=== PATIENT | female | born 1970 | race Caucasian/White ===

== ENCOUNTER 2021-11-27 11:41 | Inpatient (IN) | payer MEDICAID ==
[~2021-11-27] VITALS: Ht 144.8 cm; Wt 97.5 kg
[2021-11-27] MEDS ORDERED: LIDOCAINE HCL/EPINEPHRINE 1%-EPI 1:100,000 20 ML VIAL INFIL ONE (12:15)
[2021-11-27 12:24] LABS: EOSINOPHILS % 3.3 % (0.0-5.0); HEMATOCRIT. 44.3 % (36.0-48.0); HEMOGLOBIN. 14.8 g/dL (12.0-16.0); LYMPHOCYTES % 41.2 % (20.0-50.0); MEAN CORPUSCULAR HEMOGLOBIN 29.2 pg (28.0-32.0); MEAN CORPUSCULAR VOLUME 87.3 fL (81.0-99.0); MEAN PLATELET VOLUME 8.4 fl (7.4-10.4); MONOCYTES % 5.3 % (2.0-8.0); NEUTROPHILS % 49.2 % (40.0-76.0); PLATELET 296 x1000/uL (130-400); RED BLOOD CELL COUNT 5.07 mill/uL (4.2-5.4); RED CELL DISTRIBUTION WIDTH 13.9 % (11.6-14.6)
[2021-11-27 12:41] LABS: CHLORIDE 102 mEq/L (98-107)
[2021-11-27] MEDS ORDERED: DEXTROSE 50% WATER 50ML SYRINGE IV PRN (15:45)
[2021-11-27] MEDS ORDERED: NITROGLYCERIN 0.4MG TABLET SL SL PRN (15:45)
[2021-11-27] MEDS ORDERED: DOCUSATE SODIUM 100MG CAPSULE PO PRN (15:45)
[2021-11-27] MEDS ORDERED: ZOLPIDEM TARTRATE 5MG TABLET PO PRN (15:45)
[2021-11-27] MEDS ORDERED: IPRATROPIUM/ALBUTEROL 0.5-3(2.5)MG/3ML NEB NEB PRN (15:45)
[2021-11-27] MEDS ORDERED: MAGNESIUM/ALUMINUM HYDROXIDE/SIMETHICONE 30ML UDC PO PRN (15:45)
[2021-11-27] MEDS ORDERED: ONDANSETRON HCL 4MG/2ML INJ IV PRN (15:45)
[2021-11-27] MEDS ORDERED: CLONIDINE 0.1MG TABLET PO PRN (15:45)
[2021-11-27] MEDS ORDERED: ACETAMINOPHEN 325MG TABLET PO PRN (15:45)
[2021-11-27] MEDS ORDERED: GUAIFENESIN 200MG/10ML SUGAR FREE UDC PO PRN (15:45)
[2021-11-27 17:05] VITALS: BP 112/65
[2021-11-27 17:09] VITALS: BP 111/65
[2021-11-27 17:24] LABS: ETHANOL BLOOD < 10 mg/dL; HDL CHOLESTEROL 30 mg/dL (40-59); LDL CHOLESTEROL 108 mg/dL (5-100); TOTAL IRON BINDING CAPACITY 338 ug/dL (250-450)
[2021-11-27] MEDS: BLOOD SUGAR DIAGNOSTIC STRIP TEST SCH ×2 (17:40→20:26)
[2021-11-27 17:43] LABS: FOLIC ACID (FOLATE) SERUM 12.1 ng/mL (>5.38)
[2021-11-27] MEDS: INSULIN LISPRO 100 UNITS/ML SUBCUT SCH ×2 (18:10→20:35)
[2021-11-27] MEDS: ASPIRIN 325MG EC TABLET PO SCH (18:17)
[2021-11-27] MEDS: ENOXAPARIN 30MG/0.3ML SYR SUBCUT SCH (18:18)
[2021-11-27] MEDS: ACETAMINOPHEN 325MG TABLET PO PRN (18:21)
[2021-11-27] MEDS ORDERED: METF-873 PO (19:05)
[2021-11-27] MEDS ORDERED: SIMV-43 PO (19:05)
[2021-11-27] MEDS ORDERED: NORT10CA PO (19:05)
[2021-11-27 20:00] VITALS: BP 115/69
[2021-11-27] MEDS: FAMOTIDINE 20MG TABLET PO SCH (20:30)
[2021-11-28] VITALS: BP 134/72
[2021-11-28 00:08] LABS: CREATINE KINASE 97 IU/L (26-192); CREATINE KINASE MB FRACTION < 1.0 ng/mL (0.5-3.6)
[2021-11-28 03:24] LABS: CLARITY URINE CLEAR (CLEAR); COLOR URINE YELLOW (YELLOW); KETONES URINE NEGATIVE (NEGATIVE); LEUKOCYTE ESTERASE URINE NEGATIVE (NEGATIVE); NITRITE URINE NEGATIVE (NEGATIVE); OCCULT BLOOD URINE NEGATIVE (NEGATIVE); PH URINE 6.5 (4.5-8.0); PROTEIN URINE NEGATIVE (NEGATIVE); SPECIFIC GRAVITY URINE 1.012 (1.005-1.030)
[2021-11-28 03:52] LABS: *AMPHETAMINES SCREEN URINE NEGATIVE (NEGATIVE); *BARBITURATES SCREEN URINE NEGATIVE (NEGATIVE); *BENZODIAZEPINES SCREEN URINE NEGATIVE (NEGATIVE); *COCAINE SCREEN URINE NEGATIVE (NEGATIVE); CANNABINOID URINE SCREEN NEGATIVE (NEGATIVE); METHADONE URINE SCREEN NEGATIVE (NEGATIVE); OPIATES URINE SCREEN NEGATIVE (NEGATIVE); PHENCYCLIDINE URINE SCREEN NEGATIVE (NEGATIVE)
[2021-11-28 04:00] VITALS: BP 117/75
[2021-11-28] MEDS: BLOOD SUGAR DIAGNOSTIC STRIP TEST SCH ×4 (05:38→20:21)
[2021-11-28 07:15] LABS: BASOPHILS % 0.7 % (0.0-2.0); EOSINOPHILS % 3.9 % (0.0-5.0); HEMATOCRIT. 40.9 % (36.0-48.0); HEMOGLOBIN. 13.6 g/dL (12.0-16.0); LYMPHOCYTES % 36.9 % (20.0-50.0); MEAN CORPUSCULAR HEMOGLOBIN 29.1 pg (28.0-32.0); MEAN CORPUSCULAR VOLUME 87.8 fL (81.0-99.0); MEAN PLATELET VOLUME 8.7 fl (7.4-10.4); MONOCYTES % 5.8 % (2.0-8.0); NEUTROPHILS % 52.7 % (40.0-76.0); PLATELET 265 x1000/uL (130-400); RED BLOOD CELL COUNT 4.66 mill/uL (4.2-5.4); RED CELL DISTRIBUTION WIDTH 14.2 % (11.6-14.6)
[2021-11-28 07:37] LABS: CHLORIDE 103 mEq/L (98-107)
[2021-11-28 07:49] LABS: CREATINE KINASE 90 IU/L (26-192); CREATINE KINASE MB FRACTION < 1.0 ng/mL (0.5-3.6)
[2021-11-28 08:00] VITALS: BP 116/67
[2021-11-28] MEDS: ASPIRIN 325MG EC TABLET PO SCH (08:29)
[2021-11-28] MEDS: FAMOTIDINE 20MG TABLET PO SCH ×2 (08:29→20:21)
[2021-11-28] MEDS: ENOXAPARIN 30MG/0.3ML SYR SUBCUT SCH ×2 (08:29→20:21)
[2021-11-28] MEDS: INSULIN LISPRO 100 UNITS/ML SUBCUT SCH ×4 (08:30→20:31)
[2021-11-28 12:00] VITALS: BP 118/68
[2021-11-28] MEDS: KETOROLAC 15MG/ML VIAL IV PRN ×2 (12:20→20:31)
[2021-11-28 16:00] VITALS: BP 121/74
[2021-11-28 20:00] VITALS: BP 128/76
[2021-11-29 00:05] VITALS: BP 126/80
[2021-11-29 04:00] VITALS: BP 126/72
[2021-11-29] MEDS: BLOOD SUGAR DIAGNOSTIC STRIP TEST SCH (05:28)
[2021-11-29] MEDS: INSULIN LISPRO 100 UNITS/ML SUBCUT SCH (05:29)
[2021-11-29 08:00] VITALS: BP 102/76
[2021-11-29] MEDS: ASPIRIN 325MG EC TABLET PO SCH (08:07)
[2021-11-29] MEDS: FAMOTIDINE 20MG TABLET PO SCH (08:07)
[2021-11-29] MEDS: ENOXAPARIN 30MG/0.3ML SYR SUBCUT SCH (08:08)
[2021-11-29 09:57] VITALS: BP 102/76
[2021-11-29] MEDS: ACETAMINOPHEN 325MG TABLET PO PRN (10:26)
== END 2021-11-29 11:20 | disposition home or self-care (01) | DRG 48 ==
LOC: ER 11:41 → 7WST 13:49 → ENRESERV 15:35
PROVIDERS: ADMIT Internal Medicine; ATTEND Internal Medicine
PROC: 0HQ0XZZ Repair Scalp Skin, External Approach (ICD-10-PCS; principal; 2021-11-27)
DX: G90.8 Other disorders of autonomic nervous system (principal); E44.1 Mild protein-calorie malnutrition; I95.9 Hypotension, unspecified; S06.0X9A Concussion with loss of consciousness of unspecified duration, initial encounter; E11.65 Type 2 diabetes mellitus with hyperglycemia; E66.01 Morbid (severe) obesity due to excess calories; D72.829 Elevated white blood cell count, unspecified; E78.00 Pure hypercholesterolemia, unspecified; I10 Essential (primary) hypertension; X58.XXXA Exposure to other specified factors, initial encounter; Y93.89 Activity, other specified; Y92.89 Other specified places as the place of occurrence of the external cause; Y99.8 Other external cause status; Z68.42 Body mass index [BMI] 45.0-49.9, adult; Z79.4 Long term (current) use of insulin
CPT/HCPCS: 36415; 71045; 80053; 80061; 80305; 80320; 81003; 82550; 82553; 82607; 82746; 82962; 83036; 83540; 83550; 83605; 83735; 83880; 84100; 84145; 84443; 84484; 85025; 93005; 93306; 93970; 99285; J1650; J1815; J1885; J3490; G0480